=== PATIENT | male | born 1960 | race Caucasian/White ===

== ENCOUNTER 2016-08-28 13:06 | Emergency (ER) | payer SELFPAY ==
[~2016-08-28] VITALS: Ht 180.3 cm; Wt 104.3 kg
[2016-08-28 13:49] LABS: BASO # 0.1 10*3/uL (0.0-0.1); BASO % 0.9 % (0.0-1.0); EOS # 0.2 10*3/uL (0.0-0.4); EOS % 1.6 % (1.0-4.0); HEMATOCRIT 43.6 % (42.0-52.0); HEMOGLOBIN 14.9 g/dl (14.0-18.0); IG # 0.1 10*3/uL (0.0-0.1); LYMPH # 2.7 10*3/uL (1.3-4.4); LYMPH % 27.3 % (27.0-41.0); MEAN CELL VOLUME 90.6 fl (80.0-94.0); MEAN CORPUSCULAR HGB CONC 34.2 g/dl (33.0-37.0); MEAN PLATELET VOLUME 9.5 fl (9.6-12.3); MONO # 0.9 10*3/uL (0.1-1.0); MONO % 8.5 % (3.0-9.0); NEUT # 6.1 10*3/uL (2.3-7.9); PLATELET COUNT AUTOMATED 286 10*3/uL (130-400); RED BLOOD COUNT 4.81 10*6/uL (4.50-5.90); RED CELL DISTRI WIDTH 12.4 % (0-14.5)
[2016-08-28 13:51] LABS: PROTHROMBIN TIME 10.7 SECONDS (9.0-12.4)
[2016-08-28] MEDS ORDERED: METFORMIN500 MG PO (13:53)
[2016-08-28] MEDS ORDERED: TRULICITY0.75 MG/0. SC (13:53)
[2016-08-28] MEDS ORDERED: SIMVASTATIN5 MG PO (13:54)
[2016-08-28] MEDS ORDERED: TOPROL XL25 MG PO (13:54)
[2016-08-28 13:59] LABS: TROPONIN I < 0.015 ng/ml (<0.045)
[2016-08-28 14:02] LABS: ALBUMIN 3.9 gm/dl (3.1-4.5); ALKALINE PHOSPHATASE 59 U/L (45-117); BILIRUBIN, TOTAL 0.6 mg/dl (0.2-1.0); BUN 11 mg/dl (7-24); CARBON DIOXIDE 26 mmol/L (21-32); CHLORIDE 105 mmol/L (98-107); EST GLOM FILT AFRICAN AMERICAN > 60 ml/min; GLUCOSE 102 mg/dL (65-99); MAGNESIUM 2.1 mg/dL (1.5-2.1); POTASSIUM 4.2 mmol/L (3.5-5.1); SGOT/AST 15 IU/L (3-35); SGPT/ALT 20 U/L (12-78); SODIUM 139 mmol/L (136-145); TOTAL PROTEIN 7.5 gm/dL (6.4-8.2)
== END 2016-08-28 14:43 | disposition home or self-care (01) ==
LOC: ED 13:06
PROVIDERS: Emergency Medicine
DX: M79.621 Pain in right upper arm (principal); M79.622 Pain in left upper arm; R20.2 Paresthesia of skin; Z88.8 Allergy status to other drugs, medicaments and biological substances; Z79.899 Other long term (current) drug therapy

== ENCOUNTER → 2019-02-10 | Outpatient (CLI) | payer OTHER ==
[~2019-02-10] MED LIST: METFORMIN500 MG PO; SIMVASTATIN5 MG PO; TOPROL XL25 MG PO; TRULICITY0.75 MG/0. SC
== END | disposition home or self-care (01) ==
LOC: US 11:39
DX: I70.212 Atherosclerosis of native arteries of extremities with intermittent claudication, left leg (principal)

== ENCOUNTER → 2019-09-05 | Outpatient (CLI) | payer OTHER ==
[~2019-09-05] MED LIST changes: +ENALAPRIL PO; +GLYXAMBI PO; +ROSUVASTATIN PO; +RYBELSUS PO
--- NOTE | 2019-09-05 07:00 | NUR ---
INFORMED CONSENT OBTAINED FOR EXERCISE CARDIOLITE STRESS TEST WITH DR. SWIFT. RESTING EKG NSR WITH A SUPINE HR OF 81 WITH BP 128/60 AND HR OF 93 WITH BP 138/74 IN STANDING POSITION. PT COMPLETED 6:00 OF A 2:00 SID PROTOCOL WITH COMPLETION OF STAGE III AT 3.4 MPH AND 14% GRADE. REACHED A PEAK HR OF 158 WHICH IS 97% OF PREDICTED MAX WITH A PEAK BP OF 200/94. TEST TERMINATED BECAUSE OF FATIGUE. HAD NO CHEST PAIN OR ANY EKG CHANGES. HAS A GOOD EXERCISE TOLERANCE. LAST RECOVERY HR OF 99 WITH BP OF 156/80. TO NUCLEAR MEDICINE IN STABLE CONDITION FOR SCANNING.
== END | disposition home or self-care (01) ==
LOC: CARD 00:31
DX: R94.31 Abnormal electrocardiogram [ECG] [EKG] (principal); R06.00 Dyspnea, unspecified; R06.02 Shortness of breath; E11.9 Type 2 diabetes mellitus without complications

== ENCOUNTER → 2020-05-29 | Outpatient (CLI) | payer OTHER | END | disposition home or self-care (01) | LOC: RAD 13:33 | PROVIDERS: ATTEND Chiropractor Orthopedic | DX: M54.12 Radiculopathy, cervical region (principal) ==

== ENCOUNTER 2020-07-29 13:09 | Emergency (ER) | payer OTHER ==
[~2020-07-29] VITALS: Ht 180.3 cm; Wt 111.1 kg
== END 2020-07-29 15:46 | disposition left against medical advice (07) ==
LOC: ED 13:09
DX: R20.8 Other disturbances of skin sensation (principal); Z53.21 Procedure and treatment not carried out due to patient leaving prior to being seen by health care provider

== ENCOUNTER → 2020-08-16 | Outpatient (CLI) | payer OTHER | END | disposition home or self-care (01) | LOC: NM 10:00 | PROVIDERS: ATTEND Family Medicine | DX: R07.82 Intercostal pain (principal); G60.9 Hereditary and idiopathic neuropathy, unspecified ==

== ENCOUNTER → 2020-12-24 | Outpatient (CLI) | payer OTHER | END | disposition home or self-care (01) | LOC: CT 08:00 | PROVIDERS: ATTEND Family Medicine | DX: K57.30 Diverticulosis of large intestine without perforation or abscess without bleeding (principal) ==